=== PATIENT | female | born 2000 | race Caucasian/White ===

== ENCOUNTER → 2023-08-21 | Outpatient (CLI) | payer OTHER, SELFPAY ==
--- NOTE | 2023-08-21 12:38 | RAD_ITS ---
STUDY: X-RAY - LEFT WRIST REASON FOR EXAM: Female, 23 years old. Left wrist pain. TECHNIQUE: view(s) of the wrist were obtained. COMPARISON: None. FINDINGS: Normal visualized distal radius and ulna. Normal radiocarpal articulation. Normal distal radioulnar articulation. Normal carpal bones. Normal carpal articulations. Normal carpometacarpal articulation of the thumb. Normal second through fifth carpometacarpal articulations. Normal visualized metacarpal bones. The soft tissue structures are normal. RAD/Wrist min 3 Views IMPRESSION: Normal x-ray examination of the wrist. Electronically Signed: Thomas Pardo MD at 12:52 EST ,
--- OUTSIDE RECORDS SUMMARY | 2023-08-21 12:58 | XMS RPT_ITS | CCD ---
Author Name Unknown Address [address] [place] [address] Organization [facility] Care Team Providers Care Mortgage Loan Originator Name Role Phone Joseyogi Grey Burnett Primary Care Provider Keeley BECKWITH, Macarena Nichols Primary Care Provider Macarena Mina MD Primary Care Provider MACARENA MINA Primary Care Unavailab le CROUCH, MACARENA NICHOLS Attending Unavailab le CROUCH, MACARENA NICHOLS Attending Unavailab le CROUCH, MACARENA NICHOLS Primary Care Unavailab le CROUCH, MACARENA NICHOLS Attending Unavailab le CROUCH, MACARENA NICHOLS Primary Care Unavailab le CROUCH, MACARENA NICHOLS Primary Care Unavailab le CROUCH, MACARENA NICHOLS Admitting Unavailab le PROVIDER, UNKNOWN Referring Unavailable Israel Raymundo Attending Unavailable Israel Raymundo Primary Care Unavailable Israel Raymundo MD Primary Care Provider Israel Raymundo MD Unavailable [phone] Israel Raymundo MD Primary Care Provider Israel Raymundo MD Unavailable DR ISRAEL RAYMUNDO MD Primary Care Physician NILAY LEDESMA Attending Unavailable ISRAEL RAYMUNDO Referring Unavailable ISRAEL RAYMUNDO Primary Care Unavailable NILAY LEDESMA Attending Unavailable ISRAEL RAYMUNDO Primary Care Unavailable EVELIN CORBETT Attending Unavailable ISRAEL RAYMUNDO Primary Care Unavailable ISRAEL RAYMUNDO Attending Unavailable ISRAEL RAYMUNDO Primary Care Unavailable CHELLE, EVELIN Attending Unavailable ISRAEL RAYMUNDO Primary Care Unavailable ISRAEL RAYMUNDO Attending Unavailable ISRAEL RAYMUNDO Primary Care Unavailable EVELIN CORBETT Attending Unavailable ISRAEL RAYMUNDO Primary Care Unavailable EVELIN CORBETT Attending Unavailable ISRAEL RAYMUNDO Primary Care Unavailable ISRAEL RAYMUNDO Attending Unavailable ISRAEL RAYMUNDO Primary Care Unavailable ISRAEL RAYMUNDO Attending Unavailable ISRAEL RAYMUNDO Primary Care Unavailable ISRAEL RAYMUNDO Attending Unavailable ISRAEL RAYMUNDO Primary Care Unavailable NILAY LEDESMA Attending Unavailable ISRAEL RAYMUNDO Primary Care Unavailable NILAY LEDESMA Attending Unavailable ISRAEL RAYMUNDO Primary Care Unavailable Medications Current Medications Medication Drug Class(es) Dates Sig (Normalized) Sig (Original) amoxicillin 875 mg / clavulanate 125 mg oral tablet (1 source) Penicillin-class Antibacterial Start: 0 End: 0 take 1 tablet by mouth twice daily amoxicillin-clavulana te (AUGMENTIN) 875-125 MG per tablet Take 1 tablet by mouth 2 times daily for 7 days 14 tablet 0 10/16/2019 10/23/2019 Active 24 hr dexmethylphenidate hydrochloride 15 mg extended release oral capsule (20 sources) Central Nervous System Stimulant Start: 3 End: 3 take 1 capsule by mouth once daily dexmethylphenidate XR (Focalin XR) 15 MG 24 hr capsule Indications: Attention deficit hyperactivity disorder (ADHD), combined type Take 1 capsule (15 mg) by mouth daily. Do not crush, chew, or split. 30 capsule 0 08/12/2023 Active Completed/Discontinued Medications Medication Drug Class(es) Dates Sig (Normalized) Sig (Original) azithromycin 250 mg oral tablet (2 sources) Macrolide Antimicrobial Start: 10-20-2022 End: 10-27-2022 azithromycin (Zithromax Z-Torres) 250 MG tablet Take as directed 6 tablet 0 10/20/2022 10/27/2022 Discontinued (Med list cleanup) Problems Active Problems Problem Classification Problem Date Documented Date Episodic/Chronic Allergic reactions (9 sources) Atopic dermatitis; Translations: [Intrinsic (allergic) eczema] Onset: 04-01-2023 04-01-2023 Chronic Anxiety disorders (16 sources) Anxiety; Translations: [Anxiety disorder, unspecified] Onset: 09-19-2022 Chronic Attention-deficit conduct and disruptive behavior disorders (12 sources) Attention deficit hyperactivity disorder; Translations: [Attention-deficit hyperactivity disorder, unspecified type] Onset: 07-07-2019 07-07-2019 Chronic Attention-deficit, conduct, and disruptive behavior disorders (14 sources) Attention deficit hyperactivity disorder, combined type; Translations: [Attention-deficit hyperactivity disorder, combined type] Onset: 07-07-2019 Chronic Attention-deficit, conduct, and disruptive behavior disorders (2 sources) Attention-deficit hyperactivity disorder, combined type; Translations: [Attention-deficit hyperactivity disorder, combined type] Onset: 09-19-2022 Chronic Diabetes mellitus without complication (20 sources) Type 2 diabetes mellitus without complication; Translations: [Type 2 diabetes mellitus without complications] Onset: 07-07-2019 07-07-2019 Chronic Disorders usually diagnosed in infancy, childhood, or adolescence (16 sources) Autistic disorder; Translations: [Autistic disorder] Onset: 12-25-2021 Chronic Fever of unknown origin (1 source) Fever; Translations: [Fever, unspecified fever cause] Episodic Immunizations and screening for infectious disease (3 sources) Patient encounter status; Translations: [Encounter for laboratory testing for COVID-19 virus] Episodic Mood disorders (2 sources) Major depressive disorder, recurrent, moderate; Translations: [Major depressive disorder, recurrent, moderate (HCC)] Onset: 10-01-2022 Chronic Other connective tissue disease (2 sources) Pain in right foot; Translations: [Pain in right foot] Onset: 06-04-2022 Episodic Other endocrine disorders (14 sources) Polycystic ovary syndrome; Translations: [Polycystic ovarian syndrome] Onset: 12-25-2021 Chronic Other endocrine disorders (2 sources) Polycystic ovarian syndrome; Translations: [Polycystic ovarian syndrome] Onset: 09-19-2022 Chronic Other lower respiratory disease (1 source) Cough; Translations: [Cough] Episodic Other nutritional; endocrine; and metabolic disorders (13 sources) Obesity; Translations: [Other obesity due to excess calories] Onset: 12-25-2021 Chronic Other nutritional; endocrine; and metabolic disorders (1 source) Severe obesity; Translations: [Morbid (severe) obesity due to excess calories] 04-01-2023 Chronic Other nutritional; endocrine; and metabolic disorders (2 sources) Morbid (severe) obesity due to excess calories; Translations: [Morbid (severe) obesity due to excess calories (HCC)] Onset: 09-19-2022 Chronic Other nutritional; endocrine; and metabolic disorders (2 sources) Body mass index (BMI) 39.0-39.9, adult; Translations: [Body mass index (BMI) 39.0-39.9, adult] Onset: 09-19-2022 Chronic Other upper respiratory infections (12 sources) Sinusitis; Translations: [Chronic sinusitis, unspecified] Onset: 09-19-2022 Resolved: 01-08-2023 09-19-2022 Chronic Sprains and strains (1 source) Sprain of ankle; Translations: [Sprain of unspecified ligament of unspecified ankle, initial encounter] Onset: 04-20-2023 Episodic Past or Other Problems Problem Classification Problem Date Documented Da te Episodic/Chronic Mood disorders (7 sources) Mood disorders Onset: 03-12-2023 03-12-2023 Open wounds of extremities (7 sources) Laceration of left great toe; Translations: [Laceration without foreign body of left great toe without damage to nail, initial encounter] Onset: 03-13-2023 03-13-2023 Episodic Other aftercare (7 sources) H/O: high risk medication; Translations: [Other terminal operator (current) drug therapy] Onset: 01-08-2023 01-08-2023 Episodic Other aftercare (2 sources) Other shelter (current) drug therapy; Translations: [Other terminal operator (current) drug therapy] Onset: 01-08-2023 Episodic Other circulatory disease (11 sources) Elevated blood-pressure reading without diagnosis of hypertension; Translations: [Elevated blood-pressure reading, without diagnosis of hypertension] Onset: 10-27-2022 10-27-2022 Episodic Other circulatory disease (2 sources) Elevated blood-pressure reading, without diagnosis of hypertension; Translations: [Elevated blood-pressure reading, without diagnosis of hypertension] Onset: 10-27-2022 Episodic Other ear and sense organ disorders (7 sources) Acute otitis externa of left ear; Translations: [Unspecified acute noninfective otitis externa, left ear] Onset: 01-02-2023 Resolved: 01-08-2023 01-08-2023 Episodic Other ear and sense organ disorders (2 sources) Other infective otitis externa, left ear; Translations: [Other infective otitis externa, left ear] Onset: 01-02-2023 Episodic Other screening for suspected conditions (not mental disorders or infectious disease) (2 sources) Encounter for screening for lipoid disorders; Translations: [Encounter for screening for lipoid disorders] Onset: 01-08-2023 Episodic Other upper respiratory infections (17 sources) Acute pharyngitis; Translations: [Acute sinusitis] Onset: 09-19-2022 Resolved: 01-08-2023 Episodic Results Test Name Value Interpretation Reference Range Facil ity Vital Signs Date Time Vital Sign Value Performing Clinician Facility 06-30-2023 08:05-0500 Body height 172.7 cm Evelin Bridenthal TABLEAU DEVELOPER - [employer] SENIOR [employer]OCIATE Work Phone: [facility] 06-30-2023 08:05-0500 Body mass index (BMI) [Ratio] 39.56 kg/m2 Evelin Bridenthal TABLEAU DEVELOPER - TAX SENIOR ASSOCIATE Work Phone: [facility] 06-30-2023 08:05-0500 Body temperature 98.49 [degF] Evelin Bridenthal TABLEAU DEVELOPER - TAX SENIOR ASSOCIATE Work Phone: [facility] 06-30-2023 08:05-0500 Body weight 118.03 kg Evelin Bridenthal TABLEAU DEVELOPER - TAX SENIOR ASSOCIATE Work Phone: [facility] 06-30-2023 08:05-0500 Diastolic blood pressure 80 mm[Hg] Evelin Bridenthal TABLEAU DEVELOPER - TAX SENIOR ASSOCIATE Work Phone: [facility] 06-30-2023 08:05-0500 Heart rate 82 /min Evelin Bridenthal TABLEAU DEVELOPER - TAX SENIOR ASSOCIATE Work Phone: [facility] 06-30-2023 08:05-0500 Respiratory rate 18 /min Evelin Bridenthal TABLEAU DEVELOPER - TAX SENIOR ASSOCIATE Work Phone: [facility] 06-30-2023 08:05-0500 Systolic blood pressure 128 mm[Hg] Evelin Bridenthal TABLEAU DEVELOPER - TAX SENIOR ASSOCIATE Work Phone: [facility] 04-20-2023 12:37-0400 Body temperature 98.6 [degF] ZEINA ROSADO MD [facility] 04-20-2023 12:37-0400 Diastolic Blood Pressure Non-Invasive 97 1 ZEINA ROSADO MD [facility] 04-20-2023 12:37-0400 Heart rate 75 /min ZEINA ROSADO MD [facility] 04-20-2023 12:37-0400 Respiratory rate 20 /min ZEINA ROSADO MD [facility] 04-20-2023 12:37-0400 Systolic Blood Pressure Non-Invasive 142 1 ZEINA ROSADO MD [facility] 04-01-2023 07:37-0400 Diastolic blood pressure 92 mm[Hg] Israel Raymundo MD Work Phone: [facility] 04-01-2023 07:37-0400 Heart rate 82 /min Israel Raymundo MD Work Phone: [facility] 04-01-2023 07:37-0400 SaO2% (BldA) [Mass fraction] 98 % Israel Raymundo MD Work Phone: [facility] 04-01-2023 07:37-0400 Systolic blood pressure 130 mm[Hg] Israel Raymundo MD Work Phone: [facility] 04-01-2023 07:10-0400 Body height 172.7 cm Israel Raymundo MD Work Phone: [facility] 04-01-2023 07:10-0400 Body mass index (BMI) [Ratio] 39.44 kg/m2 Israel Raymundo MD Work Phone: [facility] 04-01-2023 07:10-0400 Body weight 117.66 kg Israel Raymundo MD Work Phone: [facility] 10-27-2022 09:37-0400 Diastolic blood pressure 102 mm[Hg] Israel Raymundo MD Work Phone: [facility] 10-27-2022 09:37-0400 Heart rate 130 /min Israel Raymundo MD Work Phone: [facility] 10-27-2022 09:37-0400 SaO2% (BldA) [Mass fraction] 97 % Israel Raymundo MD Work Phone: [facility] 10-27-2022 09:37-0400 Systolic blood pressure 130 mm[Hg] Israel Raymundo MD Work Phone: [facility] 10-27-2022 09:15-0400 Body height 172.7 cm Israel Raymundo MD Work Phone: [facility] 10-27-2022 09:15-0400 Body mass index (BMI) [Ratio] 38.23 kg/m2 Israel Raymundo MD Work Phone: [facility] 10-27-2022 09:15-0400 Body weight 114.03 kg Israel Raymundo MD Work Phone: [facility] 03-31-2022 09:41-0400 Body height 172.7 cm Macarena Mina MD Work Phone: [facility] 03-31-2022 09:41-0400 Body mass index (BMI) [Ratio] 36.25 kg/m2 Macarena Mina MD Work Phone: [facility] 03-31-2022 09:41-0400 Body temperature 97.9 [degF] Macarena Mina MD Work Phone: [facility] 03-31-2022 09:41-0400 Body weight 108.14 kg Macarena Mina MD Work Phone: [facility] 03-31-2022 09:41-0400 Diastolic blood pressure 70 mm[Hg] Macarena Mina MD Work Phone: [facility] 03-31-2022 09:41-0400 Heart rate 101 /min Macarena Mina MD Work Phone: [facility] 03-31-2022 09:41-0400 SaO2% (BldA) [Mass fraction] 97 % Macarena Mina MD Work Phone: [facility] 03-31-2022 09:41-0400 Systolic blood pressure 130 mm[Hg] Macarena Mina MD Work Phone: [facility] 12-25-2021 09:05-0400 Diastolic blood pressure 82 mm[Hg] Macarena Mina MD Work Phone: [facility] 12-25-2021 09:05-0400 Systolic blood pressure 140 mm[Hg] Macarena Mina MD Work Phone: [facility] 12-25-2021 09:03-0400 Body height 172.7 cm Macarena Mina MD Work Phone: [facility] 12-25-2021 09:03-0400 Body mass index (BMI) [Ratio] 32.81 kg/m2 Macarena Mina MD Work Phone: [facility] 12-25-2021 09:03-0400 Body temperature 97.9 [degF] Macarena Mina MD Work Phone: [facility] 12-25-2021 09:03-0400 Body weight 97.89 kg Macarena Mina MD Work Phone: [facility] 12-25-2021 09:03-0400 Heart rate 120 /min Macarena Mina MD Work Phone: [facility] 12-25-2021 09:03-0400 SaO2% (BldA) [Mass fraction] 99 % Macarena Mina MD Work Phone: [facility] 06-25-2021 12:24-0500 Body height 172.7 cm Grey Bramlee DO Work Phone: [facility] 06-25-2021 12:24-0500 Body mass index (BMI) [Ratio] 30.87 kg/m2 Grey Bramlee DO Work Phone: [facility] 06-25-2021 12:24-0500 Body temperature 98.49 [degF] Grey Bramlee DO Work Phone: [facility] 06-25-2021 12:24-0500 Body weight 92.08 kg [employer] Work Phone: [facility] 06-25-2021 12:24-0500 Heart rate 84 /min [employer] Work Phone: [facility] 06-25-2021 12:24-0500 Respiratory rate 18 /min [employer] Work Phone: [facility] 06-25-2021 09:49-0500 SaO2% (BldA) [Mass fraction] 100 % [employer] Work Phone: [facility] 10-16-2019 13:17-0500 Body Temperature 99.3 [degF] [place] 10-16-[place] 13:17-0500 BP Diastolic 97 mm[Hg] [facility] [employer] [place] 10-16-2019 13:17-0500 BP Systolic 179 mm[Hg] [facility] [employer] [place] 10-16-2019 13:17-0500 Pulse (Heart Rate) 134 /min [place] 10-16-2019 13:17-0500 Pulse Oximetry 96 % [facility] [employer] [place] 10-16-2019 13:17-0500 Respiratory Rate 17 /min Grey [employer] [place] Encounters Encounter Date Encounter Type Care Provider Facility Start: 08-12-2023 Refill Israel Raymundo MD Work Phone: [facility] Procedures Date Procedure Procedure Detail Performing Clinician Start: 06-30-2023 Follow-up visit Follow-up EVELIN CORBETT Start: 03-12-2023 Adult depression scr eening assessment Israel Raymundo MD Work Phone: Start: 01-08-2023 Lipid 1996 panel - S angelika or Plasma Israel Raymundo MD Work Phone: Start: 10-01-2022 Adult depression scr eening assessment Corry Ortiz TABLEAU DEVELOPER - TAX SENIOR ASSOCIATE Work Phone: Start: 06-11-2022 Microscopic observat ion [Identifier] in Cervix by Cyto stain Israel Raymundo MD Work Phone: Start: 02-10-2022 Ophthalmic examinati on and evaluation Macarena Mina MD Work Phone: Start: 12-25-2021 Adult depression scr eening assessment Macarena Mina MD Work Phone: Start: 06-25-2021 COVID-19, RAPID Daquan celestine ZieglerStokes TABLEAU DEVELOPER - TAX SENIOR ASSOCIATE Work Phone: Start: 06-25-2021 Iaadiadoo influenza Mark jeimy Burnett Stokes TABLEAU DEVELOPER - TAX SENIOR ASSOCIATE Work Phone: Plan of Treatment Date Care Activity Detail Author Start: 2058 RSV Immunization age d 60 or older (1 - 1-dose 60+ series) RSV Immunization aged 60 or older (1 - 1-dose 60+ series) [facility] Start: 2048 Zoster Vaccines (1 of 2) Zoster Vacc melissa (1 of 2) [facility] Start: 2048 Shingles Vaccine (1 of 2) Shingles V accine (1 of 2) [place] Start: 06-11-2025 Glaucoma screening Diabetes: R etinopathy Screening [facility] Start: 06-11-2025 Screening for malign ant neoplasm of cervix Pap Smear [facility] Start: 04-01-2024 Hemoglobin A1c measurement Diabetes: Hemoglobin A1C [facility] Start: 03-12-2024 COVID-19 Vaccine (#1) COVID-19 Vacci ne (#1) [facility] Immunizations Immunization Date Immunization Notes Care Provider Fa cility 10-09-2021 tuberculin skin test ; purified protein derivative solution, intradermal Macarena Mina MD Work Phone: [facility] 1999 measles, mumps and r ubella virus vaccine Israel Raymundo MD Work Phone: [facility] Payers Date Payer Category Payer Unknown 2022 Unknown [id number] 2019 Medicare UHC MEDICARE [employer] DUAL COMPLETE xxxxxxxxx 2019-Present xxxxxxxxx [id number] 2019 Medicare [id number] 2019 Medicare [facility] CARE [facility] DUAL COMPLETE (O SNP) [id number] 2019-Present [phone] [address] [address] [place] [address] [id number] 2014 [employer] [place] [employer] ( and others) [facility] xxxxxxxxxxx 2014-Present [id number] 2014 Medicaid [facility] MEDICAID [facility] xxxxxxxxxxxx 2014-Present [phone] [address] [address] [place] [address] xxxxxxxxxxxx [id number] 2014 Medicaid [id number] 1998 Unknown [id number] 2. 1998 Unknown [id number] 2. 1998 Unknown [id number] 2. 1998 Unknown [id number] 1998 Unknown [id number] Social History Date Type Detail Facility Start: 10-16-2019 End: 10-01-2022 Tobacco smoking status NHIS Never smoker [facility] Start: 10-16-2019 End: 03-31-2022 [facility] Start: 2000 [facility] Start: 12-24-2020 End: 10-01-2022 Tobacco use and exposure Never used [facility] Start: 04-04-2021 History SDOH Financial 5 [facility] Work Phone: Start: 04-04-2021 History SDOH Food Worry 1 [facility] Work Phone: Start: 12-15-2021 End: 04-01-2023 Exposure to SARS-CoV-2 (event) Not sure [facility] Start: 03-31-2022 History SDOH Physica l Activity DPW 98 [facility] Start: 03-31-2022 History SDOH Physica l Activity MPS 0 [facility] Start: 03-31-2022 History SDOH Housing Unable to Pay 3 [facility] Start: 10-27-2022 End: 06-30-2023 Alcohol intake Current drinker of alcohol (finding) [facility] Start: 10-01-2022 Alcohol [facility] Start: 01-08-2023 End: 03-12-2023 History of Social function [facility] Start: 01-08-2023 End: 03-12-2023 Tobacco use panel [facility] How hard is it for y ou to pay for the very basics like food, housing, medical care, and heating Not hard at all [facility] (I/We) worried wheth er (my/our) food would run out before (I/we) got money to buy more. Never true [facility] Medical Equipment Procedure Code Equipment Code Equipment Origin al Text Equipment Identifier Dates 1 each by In Vit ro route 2 times daily As needed. [id number] Start: 03-17-2019 USE TWICE DAILY NEEDED [id number] Start: 01-09-2021 USE TWICE DAILY NEEDED [id number] Start: 07-25-2021 Functional Status Date Assessment Result Facility 04-20-2023 Functional Status Independent Alvin Marquis doan [facility] 04-20-2023 Functional Status Standard Safet y ID band on, Call device within reach, Bed in low position, Wheels locked, Bedside Cart Locked, Visitor at bedside, Safety level maintained [facility] Mental Status Date Assessment Result Facility 04-20-2023 Mental Status Orientation Oriented x 4 [facility] 04-20-2023 Mental Status [facility] Clinical Notes 03-14-2021 to 08-12-2023 Telephone Encounter - JOSE Warren CNP - 08/12/2023 4:45 PM ESTTelephone Encounter - JOSE Warren CNP - 08/12/2023 4:45 PM ESTPatient InstructionsPatient Instructions Note Date & Type Note Facility 08-12-2023 Telephone encounter Note Reviewed chart. Refill appropriate. RX sent. [facility] 08-12-2023 Miscellaneous Notes Reviewed chart. Refill appropriate. RX sent. 10/02/22 [facility] UDS 01/08/23 Medication name: dexmethylphenidate XR (Focalin XR) 15 MG 24 hr capsule Medication dosage: 15 mg (Miligrams Monthly quantity needed: 30 How many day supply requestin days Medication route: oral (PO) Medication administration time(s): Take 1 capsule (15 mg) by mouth daily. Do nut crush, chew, or split If taking medication PRN, reason for taking medication: N/A If this is a controlled substance do you receive this or any other controlled medication from any other doctor or facility: No Ordering provider: Dr Israel Raymundo Date of last office visit: 06-30-2023 Date of next office visit: 08-31-2023 Date of last refill: (see medication tab): 07-08-2023 Updated/Validated preferred pharmacy: Yes Patient instructed to contact the pharmacy prior to picking up the medication: Yes documented in this encounter [facility] 08-12-2023 Telephone encounter Note 10/02/22 [facility] UDS 01/08/23 [facility] 08-12-2023 Telephone encounter Note Medication name: dexmethylphenidate XR (Focalin XR) 15 MG 24 hr capsule Medication dosage: 15 mg (Miligrams Monthly quantity needed: 30 How many day supply requestin days Medication route: oral (PO) Medication administration time(s): Take 1 capsule (15 mg) by mouth daily. Do nut crush, chew, or split If taking medication PRN, reason for taking medication: N/A If this is a controlled substance do you receive this or any other controlled medication from any other doctor or facility: No Ordering provider: Dr Israel Raymundo Date of last office visit: 06-30-2023 Date of next office visit: 08-31-2023 Date of last refill: (see medication tab): 07-08-2023 Updated/Validated preferred pharmacy: Yes Patient instructed to contact the pharmacy prior to picking up the medication: Yes [facility] 08-03-2023 Telephone encounter Note Prescription Request: Last medication check: 06/30/23 Last physical exam: 03/13/23 Next scheduled appointment: 08/31/23 Last date of refill on this medication 01/23/23 90 day 1 refill [facility] 08-03-2023 Miscellaneous Notes Prescription Request: Last medication check: 06/30/23 Last physical exam: 03/13/23 Next scheduled appointment: 08/31/23 Last date of refill on this medication 01/23/23 90 day 1 refill documented in this encounter [facility] 06-30-2023 Evaluation + Plan note Associated Problem(s): Attention deficit hyperactivity disorder (ADHD), combined type Controlled. Continue dexmethylphenidate extended release 15 mg daily and guanfacine 4 mg daily [facility] 06-30-2023 Miscellaneous Notes Associated Problem(s): Attention deficit hyperactivity disorder (ADHD), combined type Controlled. Continue dexmethylphenidate extended release 15 mg daily and guanfacine 4 mg daily Associated Problem(s): Type 2 diabetes mellitus without complication (CMS/HCC) (HCC) Uncontrolled. Has not been checking blood glucose. Recommend checking fasting and 2 hours after meal daily and bring those readings to the office in 2 weeks. Patient also advised to try taking the 6 mg of glimepiride in the morning again and see how it goes. Check glucose if signs of hypoglycemia occur, if <70- take 15 g of carbohydrate (crackers/pb). documented in this encounter [facility] 06-30-2023 Evaluation + Plan note Associated Problem(s): Type 2 diabetes mellitus without complication (CMS/HCC) (HCC) Uncontrolled. Has not been checking blood glucose. Recommend checking fasting and 2 hours after meal daily and bring those readings to the office in 2 weeks. Patient also advised to try taking the 6 mg of glimepiride in the morning again and see how it goes. Check glucose if signs of hypoglycemia occur, if <70- take 15 g of carbohydrate (crackers/pb). [facility] 06-30-2023 History of Present illness Narrative Images from the original note were not included. 06/30/2023 Dara Garcia (: 2000) is a 23 y.o. female , Established patient, here for evaluation of the following chief complaint(s): Follow-up (Diabetic med check) ASSESSMENT/PLAN: 1. Type 2 diabetes mellitus without complication, without long-term current use of insulin ([facility]/HCC) ([facility]) Assessment & Plan: Uncontrolled. Has not been checking blood glucose. Recommend checking fasting and 2 hours after meal daily and bring those readings to the office in 2 weeks. Patient also advised to try taking the 6 mg of glimepiride in the morning again and see how it goes. Check glucose if signs of hypoglycemia occur, if <70- take 15 g of carbohydrate (crackers/pb). 2. Attention deficit hyperactivity disorder (ADHD), combined type Assessment & Plan: Controlled. Continue dexmethylphenidate extended release 15 mg daily and guanfacine 4 mg daily Follow up for 3 month medcheck. SUBJECTIVE/OBJECTIVE: HPI - Dara Garcia (: 2000) is a 23 y.o. female , Established patient, here for the evaluation of the following chief complaint(s): Follow-up (Diabetic med check) Presents today for follow-up ADHD medications and diabetes ADHD- currently taking focalin xr and guanfacine 4 mg daily.- doing ok on the dosing. Has been on medications for several years with good control of symptoms. Mood is doing good. Has been seeing psychiatry for anxiety and depression, still needs to schedule the ADHD adult eval to be completed Diabetes. - is eating less carbs and more protein. Is taking metformin 1000 mg twice daily. And was to increase the glimepiride to 6 mg, so we will months ago, however states that she was not feeling well when taking the 6 mg so she only took it for a few days and went back down to 4 mg, is currently not checking her blood sugars, needs batteries for her meter. Last hemoglobin A1c was 8.3 3 months ago Prior to Admission medications Medication Sig Start Date End Date Taking? Authorizing Provider dexmethylphenidate XR (Focalin XR) 15 MG 24 hr capsule Take 1 capsule (15 mg) by mouth daily. Do not crush, chew, or split. 06/09/23 Yes Israel Raymundo MD glimepiride (Amaryl) 4 MG tablet Take 1.5 tablets (6 mg) by mouth every morning (before breakfast). 06/09/23 Yes Israel Raymundo MD guanFACINE (Intuniv) 4 mg 24 hr tablet TAKE 1 TABLET BY MOUTH EVERY DAY 06/24/23 Yes Israel Raymundo MD hydrOXYzine HCl (Atarax) 25 MG tablet Take 1 tablet (25 mg) by mouth Nightly. 05/18/23 Yes JOSE Gan CNP metFORMIN (Glucophage) 1000 MG tablet TAKE 1 TABLET (1,000 MG) BY MOUTH IN THE MORNING AND IN THE EVENING WITH MEALS 01/23/23 Yes Israel Raymundo MD Marissa 0.25-35 MG-MCG tablet TAKE 1 TABLET BY MOUTH EVERY DAY IN THE MORNING 06/17/23 Yes Israel Raymundo MD risperiDONE (RisperDAL) 1 MG tablet Take 1 tablet (1 mg) by mouth daily. 05/18/23 Yes JOSE Gan CNP sertraline (Zoloft) 50 MG tablet Take 1.5 tablets (75 mg) by mouth daily. 05/18/23 05/17/24 Yes JOSE Gan CNP triamcinolone (Kenalog) 0.5 % cream Apply topically 3 times daily. 04/01/23 Yes Israel Raymundo MD guanFACINE (Intuniv) 4 mg 24 hr tablet Take 1 tablet (4 mg) by mouth daily. 04/02/23 06/24/23 Israel Raymundo MD Review of Systems Constitutional: Negative for activity change, appetite change, fatigue and fever. HENT: Negative for congestion, ear discharge, ear pain, postnasal drip, rhinorrhea, sinus pressure and sinus pain. Bilateral ears itching a little bit Respiratory: Negative. Cardiovascular: Negative. Gastrointestinal: Negative. Genitourinary: Negative. Musculoskeletal: Negative. Neurological: Negative. Psychiatric/Behavioral: Negative. Vitals: 06/30/23 0805 BP: 128/80 Pulse: 82 Resp: 18 Temp: 36.9 C (98.5 F) Weight: 260 lb 3.2 oz (118 kg) Height: 5' 8 (1.727 m) Physical Exam Constitutional: General: She is not in acute distress. Appearance: Normal appearance. She is obese. She is not ill-appearing. HENT: Head: Normocephalic and atraumatic. Right Ear: Tympanic membrane normal. Left Ear: Tympanic membrane normal. Nose: No congestion or rhinorrhea. Mouth/Throat: Mouth: Mucous membranes are moist. Pharynx: Oropharynx is clear. No posterior oropharyngeal erythema. Cardiovascular: Rate and Rhythm: Normal rate and regular rhythm. Pulmonary: Effort: Pulmonary effort is normal. Breath sounds: Normal breath sounds. Musculoskeletal: Right lower leg: No edema. Left lower leg: No edema. Neurological: Mental Status: She is alert and oriented to person, place, and time. An electronic signature was used to authenticate this note. JOSE Warren CNP 06/30/2023 10:37 AM documented in this encounter [facility] 06-30-2023 Instructions JOSE Warren CNP - 06/30/2023 8:00 AM EST Check glucose fasting and 2 hours after a meal daily - call or drop off readings in 2 weeks. Try doing the 6 mg in am of the glimepiride. -- Antihistamine over the counter for itchy ears- there is no infection. documented in this encounter [facility] 06-24-2023 Telephone encounter Note Prescription Request: Last medication check: 04/01/23 Last physical exam: 03/13/23 Next scheduled appointment: none Last date of refill on this medication 04/02/23 90 day no refill [facility] 06-24-2023 Miscellaneous Notes Prescription Request: Last medication check: 04/01/23 Last physical exam: 03/13/23 Next scheduled appointment: none Last date of refill on this medication 04/02/23 90 day no refill documented in this encounter [facility] 04-20-2023 Hospital Discharge instructions Patient Education 04/20/2023 14:42:37 Ankle Sprain (Adult) Ankle Sprain (Adult) An ankle sprain is a stretching or tearing of the ligaments that hold the ankle joint together. There are no broken bones. An ankle sprain is a common injury for both children and adults. It happens when the ankle turns, twists, or rolls in an awkward way. This can be caused by a sports injury. Or it can happen from doing something as simple as stepping on an uneven surface. Ligaments are made of tough connective tissue. Normally, ligaments stretch a certain amount and then go back to their normal place. A sprain happens when a ligament is forced to stretch more than the normal amount. A severe sprain can actually tear the ligaments. If you have a severe sprain, you may have felt or heard something like a pop when you were injured. Ankle sprains are given a grade depending on whether they are mild, moderate, or severe: Grade 1 sprain. A mild sprain with minor stretching and damage to the ligament. Grade 2 sprain. A moderate sprain where the ligament is partly torn. Grade 3 sprain. The most severe kind of sprain. The ligament is completely torn. Most sprains take about 4 to 6 weeks to heal. A severe sprain can take several months to recover. Your healthcare provider may order X-rays to be sure you don t have a fracture, or broken bone. The injured area will feel sore. Swelling and pain may make it hard to walk. You may need crutches if walking is painful. Or your provider may have you use a cast boot or air splint. This will depend on the grade of ankle sprain that you have. Home care For a Grade 1 sprain, use RICE (rest, ice, compression, and elevation): Rest your ankle. Don t walk on it. Ice should be used right away to help control swelling. Place an ice pack over the injured area for 20 minutes. Do this every 3 to 6 hours for the first 24 to 48 hours. Keep using ice packs to ease pain and swelling as needed. To make an ice pack, put ice cubes in a plastic bag that seals at the top. Wrap the bag in a clean, thin towel or cloth. Never put ice or an ice pack directly on the skin. The ice pack can be put right on the cast, bandage, or splint. As the ice melts, be careful that the cast, bandage, or splint doesn t get wet. If you have a boot, open it to apply an ice pack, unless told otherwise by your provider. Compression devices help to control swelling. They also keep the ankle from moving and support your injured ankle. These devices include dressings, bandages, and wraps. Elevate or raise your ankle above the level of your heart when sitting or lying down. This is very important for the first 48 hours. Follow the RICE guidelines for a Grade 2 sprain. This type of sprain will take longer to heal. Your provider may have you wear a splint, cast, or brace to keep your ankle from moving. If you have a Grade 3 sprain, you are at risk for long-term ankle instability. In rare cases, surgery may be needed. Your provider may have you wear a short leg cast or a walking boot for 2 to 3 weeks. After 48 hours, it may be helpful to apply heat for 20 minutes several times a day. You can do this with a heating pad or warm compress. Or you may want to go back and forth between using ice and heat. Never apply heat directly to the skin. Always wrap the heating pad or warm compress in a clean, thin towel or cloth. You may use eizr-cnh-sgoywhl pain medicine (NSAIDS or nonsteroidal anti-inflammatory drugs) to control pain, unless another pain medicine was prescribed. Talk with your provider before using these medicines if you have chronic liver or kidney disease, or have ever had a stomach ulcer or gastrointestinal bleeding. Follow any rehabilitation exercises your provider gives you. These can help you be more flexible and improve your balance and coordination. This is helpful in preventing long-term ankle problems. Prevention To help prevent ankle sprains, it s important to have good strength, balance, and flexibility. Be sure to: Always warm up before you exercise or do something very active Be careful when walking or running on uneven or cracked surfaces Wear shoes that are in good condition and fit well Listen to your body s signals to slow down when you are in pain or tired Follow-up care Any X-rays you had today don t show any broken bones, breaks, or fractures. Sometimes fractures don t show up on the first X-ray. Bruises and sprains can sometimes hurt as much as a fracture. These injuries can take time to heal completely. If your symptoms don t get better or they get worse, talk with your healthcare provider. You may need a repeat X-ray. Follow up with your healthcare provider, or as advised. Check for any warning signs listed below. When to seek medical advice Call your healthcare provider right away if any of these occur: Fever of 100.4 F (38 C) or higher, or as directed by your healthcare provider Chills The injury doesn t seem to be healing The swelling comes back The cast or splint has a bad smell The plaster cast or splint gets wet or soft The fiberglass cast or splint gets wet and does not dry for 24 hours The pain or swelling increases, or redness appears Your toes become cold, blue, numb, or tingly The skin is discolored (looks blue, purple, or dorantes), has blisters, or is irritated You re-injure your ankle [id number] [employer] [address] [place] [address]. All rights reserved. This information is not intended as a substitute for professional medical care. Always follow your healthcare professional's instructions. Follow Up Care 04/20/2023 12:31:07 With:ISRAEL RAYMUNDO MD Address: [address] [place] [phone]- When:3-5 days [facility] 04-20-2023 Note Discharge Instructions Thank you for allowing [facility] to assist you with your healthcare needs. The following is important discharge information regarding your hospital visit. Diagnosis from Today's Visit Ankle injury - Minor Ankle sprain What to Do Next Instructions from Your Care Team Discharge Home Equipment - Ordered -- Splint, Ankle Stirrup Right, 99 month(s), 04/20/23 14:43:00 EDT Discharge Home Equipment - Ordered -- Crutches, 99 month(s), 04/20/23 14:43:00 EDT Discharge Return to Work, School, or Sports (Return to Work, School, or Sports) - Ordered -- 04/20/23, 04/27/23, May return to: work, 04/20/23 14:41:00 EDT Post Acute Orders No qualifying data available. You Need to Schedule the Following Appointments Follow Up with ISRAEL RAYMUNDO MD When Within 3-5 days Where: [address] [place] [address]- Allergies NKA Medications Please ask your primary doctor or pharmacist before taking any other medication not listed, including over the counter drugs, herbal medications, vitamins and or supplements as they may interact with your home medications. Please take this list to your next doctor s visit. Bring all medications you take, including over the counter medications, herbals and other supplements with you to your doctor s visit. Patients and families are reminded to discard old lists and to update any records with all medication providers or retail pharmacies. Education Materials Ankle Sprain (Adult) An ankle sprain is a stretching or tearing of the ligaments that hold the ankle joint together. There are no broken bones. An ankle sprain is a common injury for both children and adults. It happens when the ankle turns, twists, or rolls in an awkward way. This can be caused by a sports injury. Or it can happen from doing something as simple as stepping on an uneven surface. Ligaments are made of tough connective tissue. Normally, ligaments stretch a certain amount and then go back to their normal place. A sprain happens when a ligament is forced to stretch more than the normal amount. A severe sprain can actually tear the ligaments. If you have a severe sprain, you may have felt or heard something like a pop when you were injured. Ankle sprains are given a grade depending on whether they are mild, moderate, or severe: Grade 1 sprain. A mild sprain with minor stretching and damage to the ligament. Grade 2 sprain. A moderate sprain where the ligament is partly torn. Grade 3 sprain. The most severe kind of sprain. The ligament is completely torn. Most sprains take about 4 to 6 weeks to heal. A severe sprain can take several months to recover. Your healthcare provider may order X-rays to be sure you don t have a fracture, or broken bone. The injured area will feel sore. Swelling and pain may make it hard to walk. You may need crutches if walking is painful. Or your provider may have you use a cast boot or air splint. This will depend on the grade of ankle sprain that you have. Home care For a Grade 1 sprain, use RICE (rest, ice, compression, and elevation): Rest your ankle. Don t walk on it. Ice should be used right away to help control swelling. Place an ice pack over the injured area for 20 minutes. Do this every 3 to 6 hours for the first 24 to 48 hours. Keep using ice packs to ease pain and swelling as needed. To make an ice pack, put ice cubes in a plastic bag that seals at the top. Wrap the bag in a clean, thin towel or cloth. Never put ice or an ice pack directly on the skin. The ice pack can be put right on the cast, bandage, or splint. As the ice melts, be careful that the cast, bandage, or splint doesn t get wet. If you have a boot, open it to apply an ice pack, unless told otherwise by your provider. Compression devices help to control swelling. They also keep the ankle from moving and support your injured ankle. These devices include dressings, bandages, and wraps. Elevate or raise your ankle above the level of your heart when sitting or lying down. This is very important for the first 48 hours. Follow the RICE guidelines for a Grade 2 sprain. This type of sprain will take longer to heal. Your provider may have you wear a splint, cast, or brace to keep your ankle from moving. If you have a Grade 3 sprain, you are at risk for long-term ankle instability. In rare cases, surgery may be needed. Your provider may have you wear a short leg cast or a walking boot for 2 to 3 weeks. After 48 hours, it may be helpful to apply heat for 20 minutes several times a day. You can do this with a heating pad or warm compress. Or you may want to go back and forth between using ice and heat. Never apply heat directly to the skin. Always wrap the heating pad or warm compress in a clean, thin towel or cloth. You may use oqhy-pqu-xecryxx pain medicine (NSAIDS or nonsteroidal anti-inflammatory drugs) to control pain, unless another pain medicine was prescribed. Talk with your provider before using these medicines if you have chronic liver or kidney disease, or have ever had a stomach ulcer or gastrointestinal bleeding. Follow any rehabilitation exercises your provider gives you. These can help you be more flexible and improve your balance and coordination. This is helpful in preventing long-term ankle problems. Prevention To help prevent ankle sprains, it s important to have good strength, balance, and flexibility. Be sure to: Always warm up before you exercise or do something very active Be careful when walking or running on uneven or cracked surfaces Wear shoes that are in good condition and fit well Listen to your body s signals to slow down when you are in pain or tired Follow-up care Any X-rays you had today don t show any broken bones, breaks, or fractures. Sometimes fractures don t show up on the first X-ray. Bruises and sprains can sometimes hurt as much as a fracture. These injuries can take time to heal completely. If your symptoms don t get better or they get worse, talk with your healthcare provider. You may need a repeat X-ray. Follow up with your healthcare provider, or as advised. Check for any warning signs listed below. When to seek medical advice Call your healthcare provider right away if any of these occur: Fever of 100.4 F (38 C) or higher, or as directed by your healthcare provider Chills The injury doesn t seem to be healing The swelling comes back The cast or splint has a bad smell The plaster cast or splint gets wet or soft The fiberglass cast or splint gets wet and does not dry for 24 hours The pain or swelling increases, or redness appears Your toes become cold, blue, numb, or tingly The skin is discolored (looks blue, purple, or dorantes), has blisters, or is irritated You re-injure your ankle [id number] [employer]. [address] [place] [address], [place] [address]. All rights reserved. This information is not intended as a substitute for professional medical care. Always follow your healthcare professional's instructions. Additional Information VACCINATE! IT SAVES LIVES! Members of the community who have not yet received the COVID-19 vaccine and would like to receive it can visit one of [facility] vaccine clinics. There are many vaccine clinic locations within the [facility]. For locations and available times, please visit [email or web address] It is important to note that some COVID mobile vaccine clinics are held outdoors and may be canceled in rainy or stormy conditions. To learn more about pediatric vaccinations (ages 5-11), we invite you to visit the [employer] webpage. [email or web address] [email or web address] To learn more about the COVID-19 vaccine, we invite you to visit the CDC website for a list of frequently asked questions. https://www.cdc.gov/coronavirus/2 019-ncov/vaccines/faq.html [facility] Patient Portal Access Instructions: Stay connected with your healthcare team and access your personal medical information anytime with the [facility] Patient Portal. If you would like a full copy of your medical records please contact the [facility] Medical Records Department Thursday through Thursday between 8a.m. and 4:30p.m. Please follow the directions below to access the portal: 1.Access the email account you provided upon registration to the hospital.2.Look for an invitation email from [facility].3.Open the email and access the invitation link: Accept Invitation to [facility].Fill in the required garcia to create your account. Sign into [email or web address] with your username and password that you created in the above steps to stay up to date. You can then view a summary of results, a summary of your visits, and the ability to download your summaries to your computer or send the information securely to a physician. Remember that your healthcare information is confidential, so carefully consider who you will allow to register on the [facility] Patient Portal for access to your information. You can also access the [facility] Patient Portal on the [employer]. Simply click on Health Records under Health Data and then click on the [employer] logo. HOW TO SAFELY DISPOSE OF PRESCRIPTION MEDICATIONS Please use one of the following methods to safely dispose of your unused medications. 1.Use a drug disposal kit: the drug disposal pouch allows you to safely discard your old and unused drugs. Ask your nurse to give you one when you are discharged.2.Visit a local take-back location: Many local pharmacies and police departments have programs that collect old and unwanted prescription drugs. Call your local pharmacy or go to http://[employer] Books.Lifestyle Air/4E4Wo4b to find one close to you.3.Make use of household items: Use cat litter or old coffee grounds to dispose medications if other options are not available. Mix your drugs with these household products, seal them in an airtight container and throw it into the garbage. Call [facility]: [phone] to be sure your drugs can be disposed of in this way. Some medicines may require a different approach.4.Never flush your medications down the toilet. IF YOU HAVE BEEN PRESCRIBED AN OPIOIDS FOR PAIN If you have been prescribed an opioid (such as hydrocodone, oxycodone or morphine), it is critical to understand the possible side effects and risks of opioid pain medications. Even when taken as directed, opioids can have several side effects including: Tolerance, meaning you might need to take more of a medication for the same pain relief. Nausea, vomiting and/or constipation. Sleepiness, dizziness, dry mouth, confusion, depression or itching. Physical dependence, meaning you have withdrawal symptoms when a medication is stopped ? this can develop within a few days. KNOW YOUR RESPONSIBILITIES It is important to know exactly how much and how often to take the opioid pain medications you are prescribed. Never take opioids in higher amounts or more often than prescribed. Do not combine opioids with alcohol or other drugs that cause drowsiness, such as benzodiazepines, also known as benzos, including diazepam and alprazolam, muscle relaxants or sleep aids. Never sell or share prescription opioids. This is illegal. Store opioids in a secure place and out of reach of others (including children, family, friends and visitors). The last page(s) of this document has been signed and retained as a CHART COPY Signatures Patient Education Materials Ankle Sprain (Adult) Medication Leaflets My discharge plan and instructions have been reviewed and explained to me and I,DARA GARCIA understand my current condition and have read and understand these discharge instructions. I have received a written copy of the plan/instructions. If I have questions, I am aware that I should contact my doctor. Patient/Director Learning Signature: Date/Time: Relationship to Patient: ____ Witness Name/Signature: Date/Time: [facility] 04-20-2023 Note ORIGINAL EXAMINATION: 6 views of the right foot and ankle04/20/2023 2:22 pm COMPARISON: None HISTORY: ORDERING SYSTEM PROVIDED HISTORY: Reason for Exam: pain injury FINDINGS: There is no acute fracture or dislocation. There is no significant soft tissue swelling. There is no radiopaque foreign body. The articulations are intact. IMPRESSION: No acute fracture or dislocation. Interpreted by: Jeffery Walker DO Preliminary Report By: Jeffery Walker DO Electronically signed By Jeffery Walker DO Dictated Date: 04/20/2023 2:25:27 PM Prelim Date: 04/20/2023 2:29:22 PM Sign Date: 04/20/2023 2:29:22 PM Ordering Provider: [facility] 04-02-2023 Telephone encounter Note Patients insurance is requesting this to be sent in for 90 days instead of 30. Please advise. [facility] 04-02-2023 Miscellaneous Notes Patients insurance is requesting this to be sent in for 90 days instead of 30. Please advise. documented in this encounter [facility] 04-01-2023 Evaluation + Plan note Associated Problem(s): Autistic disorder Stable [facility] 04-01-2023 Evaluation + Plan note Associated Problem(s): Anxiety Stable, continue Zoloft 50 mg 1- 1/2 tablets daily [facility] 04-01-2023 Miscellaneous Notes Associated Problem(s): Autistic disorder Stable Associated Problem(s): Anxiety Stable, continue Zoloft 50 mg 1- 1/2 tablets daily Associated Problem(s): Attention deficit hyperactivity disorder (ADHD), combined type Stable, continue Focalin XR 15 mg daily and guanfacine 4 mg daily, she still has not scheduled with her psychiatrist. Associated Problem(s): Intrinsic atopic dermatitis Triamcinolone 0.5% cream apply twice daily for up to 2 weeks. Associated Problem(s): Type 2 diabetes mellitus without complication (CMS/HCC) (HCC) Uncontrolled, we will have her continue metformin at current dose and increase her glimepiride to 6 mg daily and check her blood sugar twice a day and drop off numbers in 2 weeks. Associated Problem(s): Obesity Discussed weight loss with diet and exercise, explained this would help her blood pressure or help her diabetes and her cholesterol. Associated Problem(s): Elevated BP without diagnosis of hypertension Blood pressure was initially elevated, recheck was improved but still diastolic was borderline high we will have her follow-up in 1 week for blood pressure check. documented in this encounter [facility] 04-01-2023 Evaluation + Plan note Associated Problem(s): Attention deficit hyperactivity disorder (ADHD), combined type Stable, continue Focalin XR 15 mg daily and guanfacine 4 mg daily, she still has not scheduled with her psychiatrist. [facility] 04-01-2023 Evaluation + Plan note Associated Problem(s): Intrinsic atopic dermatitis Triamcinolone 0.5% cream apply twice daily for up to 2 weeks. [facility] 04-01-2023 Evaluation + Plan note Associated Problem(s): Type 2 diabetes mellitus without complication (CMS/HCC) (HCC) Uncontrolled, we will have her continue metformin at current dose and increase her glimepiride to 6 mg daily and check her blood sugar twice a day and drop off numbers in 2 weeks. [facility] 04-01-2023 Evaluation + Plan note Associated Problem(s): Obesity Discussed weight loss with diet and exercise, explained this would help her blood pressure or help her diabetes and her cholesterol. [facility] 04-01-2023 Evaluation + Plan note Associated Problem(s): Elevated BP without diagnosis of hypertension Blood pressure was initially elevated, recheck was improved but still diastolic was borderline high we will have her follow-up in 1 week for blood pressure check. [facility] 04-01-2023 History of Present illness Narrative Patient verified by last name and date of . Images from the original note were not included. I 04/01/2023 Dara Garcia (: 2000) is a 22 y.o. female , Established patient, here for evaluation of the following chief complaint(s): Diabetes and Follow-up (3 month) ASSESSMENT/PLAN: 1. Type 2 diabetes mellitus without complication, without long-term current use of insulin ([facility] ([facility]) Assessment & Plan: Uncontrolled, we will have her continue metformin at current dose and increase her glimepiride to 6 mg daily and check her blood sugar twice a day and drop off numbers in 2 weeks. Orders: - Hemoglobin A1c - Basic metabolic panel 2. Attention deficit hyperactivity disorder (ADHD), combined type Assessment & Plan: Stable, continue Focalin XR 15 mg daily and guanfacine 4 mg daily, she still has not scheduled with her psychiatrist. 3. Autistic disorder Assessment & Plan: Stable 4. Elevated BP without diagnosis of hypertension Assessment & Plan: Blood pressure was initially elevated, recheck was improved but still diastolic was borderline high we will have her follow-up in 1 week for blood pressure check. 5. Class 2 severe obesity due to excess calories with serious comorbidity and body mass index (BMI) of 39.0 to 39.9 in adult ([facility]) Assessment & Plan: Discussed weight loss with diet and exercise, explained this would help her blood pressure or help her diabetes and her cholesterol. 6. Intrinsic atopic dermatitis Assessment & Plan: Triamcinolone 0.5% cream apply twice daily for up to 2 weeks. 7. Anxiety Assessment & Plan: Stable, continue Zoloft 50 mg 1- 1/2 tablets daily Follow up in about 3 months (around 07/02/2023). SUBJECTIVE/OBJECTIVE: DORCAS Bolanos comes in today for 3-month follow-up on her diabetes, she is also here for follow-up on her attention deficit disorder or autism and her blood pressure is again slightly elevated even though she has never actually been diagnosed with hypertension and her obesity. Her only complaint today is that her sugars have been elevated and she does bring in a list of blood sugars which are high and she has a rash on her right foot that she says is itchy and she been using antibiotic ointment on it. Review of Systems Constitutional: Negative for chills and fever. Respiratory: Negative for shortness of breath. Cardiovascular: Negative for chest pain and palpitations. Gastrointestinal: Negative for abdominal pain, blood in stool, constipation and diarrhea. Genitourinary: Negative for dyspareunia, dysuria, frequency, hematuria and urgency. Neurological: Negative for weakness and numbness. Psychiatric/Behavioral: Negative for dysphoric mood. The patient is not nervous/anxious. Vitals: 04/01/23 0710 04/01/23 0737 BP: (!) 130/100 (!) 130/92 Pulse: 95 82 SpO2: 98% 98% Weight: 259 lb 6.4 oz (118 kg) Height: 5' 8 (1.727 m) Physical Exam Vitals and nursing note reviewed. Constitutional: General: She is not in acute distress. Appearance: Normal appearance. She is obese. HENT: Head: Normocephalic. Right Ear: Tympanic membrane, ear canal and external ear normal. Left Ear: Tympanic membrane, ear canal and external ear normal. Mouth/Throat: Mouth: Mucous membranes are moist. Pharynx: Oropharynx is clear. Eyes: Extraocular Movements: Extraocular movements intact. Pupils: Pupils are equal, round, and reactive to light. Neck: Vascular: No carotid bruit. Cardiovascular: Rate and Rhythm: Normal rate and regular rhythm. Heart sounds: Normal heart sounds. No murmur heard. Pulmonary: Effort: Pulmonary effort is normal. Breath sounds: Normal breath sounds. Abdominal: General: Bowel sounds are normal. Palpations: Abdomen is soft. Tenderness: There is no abdominal tenderness. Musculoskeletal: General: Normal range of motion. Cervical back: Normal range of motion. Lymphadenopathy: Cervical: No cervical adenopathy. Skin: General: Skin is warm and dry. Comments: Dry scaly itchy patches on her right foot. Neurological: General: No focal deficit present. Mental Status: She is alert and oriented to person, place, and time. Psychiatric: Mood and Affect: Mood normal. An electronic signature was used to authenticate this note. Israel Raymundo MD 04/01/2023 7:52 AM documented in this encounter [facility] 03-31-2023 Telephone encounter Note Prescription Request: Last medication check: 01/08/23 Last physical exam: 03/13/23 Next scheduled appointment: 04/01/23 Last date of refill on this medication 11/03/22 30 days 3 refills [facility] 03-31-2023 Miscellaneous Notes Prescription Request: Last medication check: 01/08/23 Last physical exam: 03/13/23 Next scheduled appointment: 04/01/23 Last date of refill on this medication 11/03/22 30 days 3 refills documented in this encounter [facility] 01-02-2023 Note Not tolerating ear d rops. Start oral antibiotic. Reviewed and provided written patient education/instructions regarding diagnosis and management. Reviewed symptom management with non-pharmacological interventions and appropriate use of otc medications for relief of symptoms. Follow up for worsening or no improvement in symptoms. [facility] 12-29-2022 Telephone encounter Note Rx sent. Follow up as scheduled. [facility] 12-29-2022 Miscellaneous Notes Rx sent. Follow up as scheduled. Prescription Request: Last medication check: 10-27-22 Last physical exam: none Next scheduled appointment: 01-08-23 Last date of refill on this medication 10-20-22 documented in this encounter [facility] 12-29-2022 Telephone encounter Note Prescription Request: Last medication check: 10-27-22 Last physical exam: none Next scheduled appointment: 01-08-23 Last date of refill on this medication 10-20-22 [facility] 10-27-2022 Evaluation + Plan note Associated Problem(s): Type 2 diabetes mellitus without complication (CMS/HCC) (HCC) Uncontrolled, some improvement with increasing her metformin to 2000 mg daily, we will add glimepiride 2 mg daily have her check her blood sugar numbers twice a day and drop off numbers in 2 weeks when she comes in for a blood pressure check [facility] 10-27-2022 Miscellaneous Notes Associated Problem(s): Type 2 diabetes mellitus without complication (CMS/HCC) (HCC) Uncontrolled, some improvement with increasing her metformin to 2000 mg daily, we will add glimepiride 2 mg daily have her check her blood sugar numbers twice a day and drop off numbers in 2 weeks when she comes in for a blood pressure check Associated Problem(s): Elevated BP without diagnosis of hypertension Blood pressure was initially elevated, recheck was still high also her heart rate is elevated. She does say she has been under stress and had an argument with her this morning. We will recheck in 1 week may need to put her on a beta-clay to slow her heart rate along with controlling her blood pressure. documented in this encounter [facility] 10-27-2022 Miscellaneous Notes Associated Problem(s): Type 2 diabetes mellitus without complication (CMS/HCC) (HCC) Uncontrolled, some improvement with increasing her metformin to 2000 mg daily, we will add glimepiride 2 mg daily have her check her blood sugar numbers twice a day and drop off numbers in 2 weeks when she comes in for a blood pressure check Associated Problem(s): Elevated BP without diagnosis of hypertension Blood pressure was initially elevated, recheck was still high also her heart rate is elevated. She does say she has been under stress and had an argument with her this morning. We will recheck in 1 week may need to put her on a beta-clay to slow her heart rate along with controlling her blood pressure. Addended by: ISRAEL RAYMUNDO on: 11/03/2022 05:10 PM Modules accepted: Level of Service documented in this encounter [facility] 10-27-2022 Evaluation + Plan note Associated Problem(s): Elevated BP without diagnosis of hypertension Blood pressure was initially elevated, recheck was still high also her heart rate is elevated. She does say she has been under stress and had an argument with her this morning. We will recheck in 1 week may need to put her on a beta-clay to slow her heart rate along with controlling her blood pressure. [facility] 10-27-2022 History of Present illness Narrative Images from the original note were not included. 10/27/2022 Dara Garcia (: 2000) is a 22 y.o. female , Established patient, here for evaluation of the following chief complaint(s): Diabetes and Follow-up (1 week) ASSESSMENT/PLAN: 1. Type 2 diabetes mellitus without complication, without long-term current use of insulin ([facility] ([facility]) Assessment & Plan: Uncontrolled, some improvement with increasing her metformin to 2000 mg daily, we will add glimepiride 2 mg daily have her check her blood sugar numbers twice a day and drop off numbers in 2 weeks when she comes in for a blood pressure check Follow up in about 4 weeks (around 11/24/2022). SUBJECTIVE/OBJECTIVE: DORCAS Bolanos comes in today for follow-up on her diabetes she brings in blood sugar numbers which are still elevated most are in the upper 100s and in the 200s. She did increase her metformin to twice a day and she is trying to change her eating to where she is avoiding more carbs. Blood pressure is elevated today, will treat recheck that prior to discharge she says she has been really stressed she is not sleeping well she had an argument with her when he got home from work today. Review of Systems Constitutional: Negative for chills and fever. Respiratory: Negative for shortness of breath. Cardiovascular: Negative for chest pain and palpitations. Vitals: 10/27/22 0915 10/27/22 0937 BP: (!) 134/110 (!) 130/102 Pulse: (!) 123 (!) 130 SpO2: 97% 97% Weight: 251 lb 6.4 oz (114 kg) Height: 5' 8 (1.727 m) Physical Exam Vitals and nursing note reviewed. Constitutional: General: She is not in acute distress. Appearance: Normal appearance. HENT: Head: Normocephalic and atraumatic. Right Ear: Tympanic membrane, ear canal and external ear normal. Left Ear: Tympanic membrane, ear canal and external ear normal. Mouth/Throat: Mouth: Mucous membranes are moist. Pharynx: Oropharynx is clear. Eyes: Extraocular Movements: Extraocular movements intact. Pupils: Pupils are equal, round, and reactive to light. Cardiovascular: Rate and Rhythm: Normal rate and regular rhythm. Heart sounds: Normal heart sounds. No murmur heard. Pulmonary: Effort: Pulmonary effort is normal. Breath sounds: Normal breath sounds. Musculoskeletal: Cervical back: Neck supple. Lymphadenopathy: Cervical: No cervical adenopathy. Neurological: Mental Status: She is alert. An electronic signature was used to authenticate this note. Israel Raymundo MD 10/27/2022 10:02 AM documented in this encounter [facility] 10-27-2022 History of Present illness Narrative Images from the original note were not included. 10/27/2022 Dara Garcia (: 2000) is a 22 y.o. female , Established patient, here for evaluation of the following chief complaint(s): Diabetes and Follow-up (1 week) ASSESSMENT/PLAN: 1. Type 2 diabetes mellitus without complication, without long-term current use of insulin ([facility] ([facility]) Assessment & Plan: Uncontrolled, some improvement with increasing her metformin to 2000 mg daily, we will add glimepiride 2 mg daily have her check her blood sugar numbers twice a day and drop off numbers in 2 weeks when she comes in for a blood pressure check Follow up in about 4 weeks (around 11/24/2022). SUBJECTIVE/OBJECTIVE: DORCAS Bolanos comes in today for follow-up on her diabetes she brings in blood sugar numbers which are still elevated most are in the upper 100s and in the 200s. She did increase her metformin to twice a day and she is trying to change her eating to where she is avoiding more carbs. Blood pressure is elevated today, will treat recheck that prior to discharge she says she has been really stressed she is not sleeping well she had an argument with her when he got home from work today. Review of Systems Constitutional: Negative for chills and fever. Respiratory: Negative for shortness of breath. Cardiovascular: Negative for chest pain and palpitations. Vitals: 10/27/22 0915 10/27/22 0937 BP: (!) 134/110 (!) 130/102 Pulse: (!) 123 (!) 130 SpO2: 97% 97% Weight: 251 lb 6.4 oz (114 kg) Height: 5' 8 (1.727 m) Physical Exam Vitals and nursing note reviewed. Constitutional: General: She is not in acute distress. Appearance: Normal appearance. HENT: Head: Normocephalic and atraumatic. Right Ear: Tympanic membrane, ear canal and external ear normal. Left Ear: Tympanic membrane, ear canal and external ear normal. Mouth/Throat: Mouth: Mucous membranes are moist. Pharynx: Oropharynx is clear. Eyes: Extraocular Movements: Extraocular movements intact. Pupils: Pupils are equal, round, and reactive to light. Cardiovascular: Rate and Rhythm: Normal rate and regular rhythm. Heart sounds: Normal heart sounds. No murmur heard. Pulmonary: Effort: Pulmonary effort is normal. Breath sounds: Normal breath sounds. Musculoskeletal: Cervical back: Neck supple. Lymphadenopathy: Cervical: No cervical adenopathy. Neurological: Mental Status: She is alert. An electronic signature was used to authenticate this note. Israel Raymundo MD 10/27/2022 10:02 AM documented in this encounter [facility] 10-27-2022 Note Addended by: ISRAEL RAYMUNDO on: 11/03/2022 05:10 PM Modules accepted: Level of Service [facility] 08-26-2022 Note Rx sent, referral do ne I sent this 1 to the [facility] however the 1 from last May was to Dr. Barroso, it looks like it is still open if she would prefer to go there. [facility] 03-31-2022 Evaluation + Plan note Associated Problem(s): Type 2 diabetes mellitus without complication, without long-term current use of insulin (HCC) Chronic, Stable, continue meds, watch diet, increase activity as can tolerate. Monitor BS as instructed. Bring blood sugar log to next visit. Get A1C drawn today. [facility] 03-31-2022 Miscellaneous Notes Associated Problem(s): Type 2 diabetes mellitus without complication, without long-term current use of insulin (HCC) Chronic, Stable, continue meds, watch diet, increase activity as can tolerate. Monitor BS as instructed. Bring blood sugar log to next visit. Get A1C drawn today. Associated Problem(s): ADHD Chronic, stable, Continue current medications, Controlled Substance Agreement on file and [place] report checked today, given a 3 months supply, f/u here as scheduled. documented in this encounter [facility] 03-31-2022 Instructions Macarena Mina MD - 03/31/2022 9:46 AM EDT Problem List Items Addressed This Visit Endocrine Type 2 diabetes mellitus without complication, without long-term current use of insulin (HCC) - Primary Chronic, Stable, continue meds, watch diet, increase activity as can tolerate. Monitor BS as instructed. Bring blood sugar log to next visit. Get A1C drawn today. PCOS (polycystic ovarian syndrome) Relevant Medications norgestimate-ethinyl estradioL 0.25-35 mg-mcg per tablet Other ADHD Chronic, stable, Continue current medications, Controlled Substance Agreement on file and [place] report checked today, given a 3 months supply, f/u here as scheduled. Relevant Medications dexmethylphenidate (FOCALIN XR) 15 MG 24 hr capsule (Start on 06/09/2022) If any referrals were placed at the time of your visit please allow 2 weeks for processing. If you haven't heard from anyone within 2 weeks please contact my office so we can look into the status of your referral. If you were given any labs today please ensure they are completed according to the directions given. Once labs are completed please allow 1-2 weeks for us to receive the results, review them, and let you know what steps, if any, are needed next. If you haven't heard from us after that please call to inquire. If labs were ordered to be done PRIOR to your next visit we will discuss the results at the time of your office visit. If any procedures or imaging studies were ordered that must be prior authorized please give us 2 weeks to get them approved. Once approved someone should call you to schedule them or give you a date and time that they were scheduled for. If you haven't heard anything within 2 weeks of the office visit please call the office so we can look into their status. documented in this encounter [facility] 03-31-2022 Evaluation + Plan note Associated Problem(s): ADHD Chronic, stable, Continue current medications, Controlled Substance Agreement on file and [place] report checked today, given a 3 months supply, f/u here as scheduled. [facility] 03-31-2022 History of Present illness Narrative OFFICE VISIT PROGRESS NOTE HPI DM - Says taking meds, no complaints, tolerating well. No other issues or concerns. No labs, wait results to determine how she is doing. ADD - Says doing ok, taking as prescribed, no side effects, likes how she feels. Improves ADL's and QOL. The following portions of the patient's history were reviewed and updated as appropriate: allergies, current medications and problem list. The patient's surgical, family, and social history was reviewed and updated as appropriate. Review of Systems Review of Systems Constitutional: Negative for activity change and fatigue. Respiratory: Negative for chest tightness, shortness of breath and wheezing. Cardiovascular: Negative for chest pain and palpitations. Neurological: Negative for dizziness, weakness and numbness. Psychiatric/Behavioral: Negative for behavioral problems and dysphoric mood. The patient is not nervous/anxious. Vitals: 03/31/22 0941 BP: 130/70 BP Location: Right arm Patient Position: Sitting BP Cuff Size: X-large Adult Pulse: (!) 101 Temp: 97.9 F (36.6 C) TempSrc: Oral SpO2: 97% Weight: 108.1 kg (238 lb 6.4 oz) Height: 5' 8 Body mass index is 36.25 kg/m . Physical Exam Physical Exam Vitals and nursing note reviewed. Constitutional: Appearance: Normal appearance. She is well-developed. Cardiovascular: Rate and Rhythm: Normal rate and regular rhythm. Heart sounds: Normal heart sounds. Pulmonary: Effort: Pulmonary effort is normal. No respiratory distress. Breath sounds: Normal breath sounds. No wheezing. Skin: General: Skin is warm. Neurological: Mental Status: She is alert and oriented to person, place, and time. Psychiatric: Mood and Affect: Mood normal. Behavior: Behavior normal. OARRS/NARxCHECK Report Received and Assessed: 03/31/2022 Date controlled substance agreement signed: 12/25/2021 Date of last drug screen: 12/25/2021 Functional Assessment: No data found Assessment/Plan Problem List Items Addressed This Visit Endocrine Type 2 diabetes mellitus without complication, without long-term current use of insulin (HCC) - Primary Chronic, Stable, continue meds, watch diet, increase activity as can tolerate. Monitor BS as instructed. Bring blood sugar log to next visit. Get A1C drawn today. PCOS (polycystic ovarian syndrome) Relevant Medications norgestimate-ethinyl estradioL 0.25-35 mg-mcg per tablet Other ADHD Chronic, stable, Continue current medications, Controlled Substance Agreement on file and [place]AR[place] report checked today, given a 3 months supply, f/u here as scheduled. Relevant Medications dexmethylphenidate (FOCALIN XR) 15 MG 24 hr capsule (Start on 06/09/2022) Goals None If any referrals were placed at today's visit the patient was instructed to call the office if they havn't heard anything about the referral within 2 weeks of today's visit. For any new medications prescribed today, patient was educated about indications for the medication, how to take the medication and potential side effects of the medications. documented in this encounter [facility] 12-26-2021 Evaluation + Plan note Associated Problem(s): Autism Chronic, stable, continue meds, will monitor. [facility] 12-26-2021 Evaluation + Plan note Associated Problem(s): ADHD Chronic, stable, Continue current medications, Controlled Substance Agreement on file and OARRS report checked today, given a 3 months supply, f/u here as scheduled. UDS done today. [facility] 12-26-2021 Evaluation + Plan note Associated Problem(s): PCOS (polycystic ovarian syndrome) Chronic, stable, asymptomatic, may need to see OBGYN, will refer as necessary. [facility] 12-26-2021 Miscellaneous Notes Associated Problem(s): Autism Chronic, stable, continue meds, will monitor. Associated Problem(s): ADHD Chronic, stable, Continue current medications, Controlled Substance Agreement on file and OARRS report checked today, given a 3 months supply, f/u here as scheduled. UDS done today. Associated Problem(s): PCOS (polycystic ovarian syndrome) Chronic, stable, asymptomatic, may need to see OBGYN, will refer as necessary. Associated Problem(s): Type 2 diabetes mellitus without complication, without long-term current use of insulin (HCC) Chronic, unsure of type, will get labs, continue meds, further adjustments pending results. Will hold on seeing Endo at this time. Associated Problem(s): Obesity Discussed elevated Body Mass Index (BMI): Advised regular exercise. Discussed elevated Body Mass Index (BMI): Advised healthy and appropriate diet. Rationale: Overweight (Findings) BMI documented in this encounter [facility] 12-26-2021 Evaluation + Plan note Associated Problem(s): Type 2 diabetes mellitus without complication, without long-term current use of insulin (HCC) Chronic, unsure of type, will get labs, continue meds, further adjustments pending results. Will hold on seeing Endo at this time. [facility] 12-25-2021 Instructions Macarena Mina MD - 12/25/2021 9:13 AM EDT Problem List Items Addressed This Visit Endocrine Type 2 diabetes mellitus without complication, without long-term current use of insulin (HCC) Chronic, unsure of type, will get labs, continue meds, further adjustments pending results. Will hold on seeing Endo at this time. Relevant Medications metFORMIN (GLUCOPHAGE-XR) 500 MG 24 hr tablet Other Relevant Orders CBC and Differential Comprehensive Metabolic Panel Lipid Panel TSH with Reflex Free T4 Microalbumin/Creatinine Ratio, UR Random Hemoglobin A1c PCOS (polycystic ovarian syndrome) Chronic, stable, asymptomatic, may need to see OBGYN, will refer as necessary. Other ADHD Chronic, stable, Continue current medications, Controlled Substance Agreement on file and [place]ARRS report checked today, given a 3 months supply, f/u here as scheduled. UDS done today. Relevant Medications guanFACINE 4 mg Tb24 sertraline (ZOLOFT) 100 MG tablet risperiDONE (RISPERDAL) 1 MG tablet dexmethylphenidate (FOCALIN XR) 15 MG 24 hr capsule (Start on 02/23/2022) Autism - Primary Chronic, stable, continue meds, will monitor. Relevant Medications guanFACINE 4 mg Tb24 sertraline (ZOLOFT) 100 MG tablet risperiDONE (RISPERDAL) 1 MG tablet dexmethylphenidate (FOCALIN XR) 15 MG 24 hr capsule (Start on 02/23/2022) Obesity Discussed elevated Body Mass Index (BMI): Advised regular exercise. Discussed elevated Body Mass Index (BMI): Advised healthy and appropriate diet. Rationale: Overweight (Findings) BMI Other Visit Diagnoses Encounter for long-term (current) use of medications Encounter for therapeutic drug monitoring Anxiety Relevant Medications hydrOXYzine (ATARAX) 25 MG tablet sertraline (ZOLOFT) 100 MG tablet risperiDONE (RISPERDAL) 1 MG tablet If any referrals were placed at the time of your visit please allow 2 weeks for processing. If you haven't heard from anyone within 2 weeks please contact my office so we can look into the status of your referral. If you were given any labs today please ensure they are completed according to the directions given. Once labs are completed please allow 1-2 weeks for us to receive the results, review them, and let you know what steps, if any, are needed next. If you haven't heard from us after that please call to inquire. If labs were ordered to be done PRIOR to your next visit we will discuss the results at the time of your office visit. If any procedures or imaging studies were ordered that must be prior authorized please give us 2 weeks to get them approved. Once approved someone should call you to schedule them or give you a date and time that they were scheduled for. If you haven't heard anything within 2 weeks of the office visit please call the office so we can look into their status. documented in this encounter [facility] 12-25-2021 Evaluation + Plan note Associated Problem(s): Obesity Discussed elevated Body Mass Index (BMI): Advised regular exercise. Discussed elevated Body Mass Index (BMI): Advised healthy and appropriate diet. Rationale: Overweight (Findings) BMI [facility] 12-25-2021 History of Present illness Narrative OFFICE VISIT PROGRESS NOTE HPI Autism/ADD - Says was treated for depression in [place] due to issues around her having to move. Had a psychiatrist in [place] who was the one treating the most of her symptoms and other issues. Had a lot of family issues, moving, and lost their service dog. Taking Adderall for focus due to autism and ADD. Also had intermittent behavioral instability that would cause acute episodes that were treated best by the Risperdal. Also kumar a service dog due to her service dog passing away. Has bad impulse control for which needs the intuniv. She is getting April 11. Learning how to drive right now. DM - Says was diagnosed in 2012 an found to be diabetic. Wa told by Endo that she had a marker for DM and tested showed she diabetic. Ended up being hospitalized for what sounds like DKA. Say down 40 lbs recently. Not on insulin. Was on an omnipod in the past. Last A1C was 6.5. The following portions of the patient's history were reviewed and updated as appropriate: allergies, current medications and problem list. The patient's surgical, family, and social history was reviewed and updated as appropriate. Review of Systems Review of Systems Constitutional: Negative for activity change and fatigue. Respiratory: Negative for chest tightness, shortness of breath and wheezing. Cardiovascular: Negative for chest pain and palpitations. Neurological: Negative for dizziness, weakness and numbness. Psychiatric/Behavioral: Negative for behavioral problems and dysphoric mood. The patient is not nervous/anxious. Vitals: 12/25/21 0903 12/25/21 0905 BP: (!) 140/80 (!) 140/82 BP Location: Right arm Left arm Patient Position: Sitting Sitting BP Cuff Size: X-large Adult X-large Adult Pulse: (!) 120 Temp: 97.9 F (36.6 C) TempSrc: Oral SpO2: 99% Weight: 97.9 kg (215 lb 12.8 oz) Height: 5' 8 Body mass index is 32.81 kg/m . Physical Exam Physical Exam Vitals and nursing note reviewed. Constitutional: Appearance: She is well-developed. Cardiovascular: Rate and Rhythm: Normal rate and regular rhythm. Heart sounds: Normal heart sounds. Pulmonary: Effort: Pulmonary effort is normal. No respiratory distress. Breath sounds: Normal breath sounds. No wheezing. Skin: General: Skin is warm. Neurological: Mental Status: She is alert and oriented to person, place, and time. OARRS/NARxCHECK Report Received and Assessed: 12/25/2021 Date controlled substance agreement signed: 12/25/2021 Date of last drug screen: 12/25/2021 Functional Assessment: No data found Assessment/Plan Problem List Items Addressed This Visit Endocrine Type 2 diabetes mellitus without complication, without long-term current use of insulin (HCC) Chronic, unsure of type, will get labs, continue meds, further adjustments pending results. Will hold on seeing Endo at this time. Relevant Medications metFORMIN (GLUCOPHAGE-XR) 500 MG 24 hr tablet Other Relevant Orders CBC and Differential Comprehensive Metabolic Panel Lipid Panel TSH with Reflex Free T4 Microalbumin/Creatinine Ratio, UR Random Hemoglobin A1c PCOS (polycystic ovarian syndrome) Chronic, stable, asymptomatic, may need to see OBGYN, will refer as necessary. Other ADHD Chronic, stable, Continue current medications, Controlled Substance Agreement on file and OARRS report checked today, given a 3 months supply, f/u here as scheduled. UDS done today. Relevant Medications guanFACINE 4 mg Tb24 sertraline (ZOLOFT) 100 MG tablet risperiDONE (RISPERDAL) 1 MG tablet dexmethylphenidate (FOCALIN XR) 15 MG 24 hr capsule (Start on 02/23/2022) Autism - Primary Chronic, stable, continue meds, will monitor. Relevant Medications guanFACINE 4 mg Tb24 sertraline (ZOLOFT) 100 MG tablet risperiDONE (RISPERDAL) 1 MG tablet dexmethylphenidate (FOCALIN XR) 15 MG 24 hr capsule (Start on 02/23/2022) Obesity Discussed elevated Body Mass Index (BMI): Advised regular exercise. Discussed elevated Body Mass Index (BMI): Advised healthy and appropriate diet. Rationale: Overweight (Findings) BMI Other Visit Diagnoses Encounter for long-term (current) use of medications Encounter for therapeutic drug monitoring Anxiety Relevant Medications hydrOXYzine (ATARAX) 25 MG tablet sertraline (ZOLOFT) 100 MG tablet risperiDONE (RISPERDAL) 1 MG tablet Goals None If any referrals were placed at today's visit the patient was instructed to call the office if they havn't heard anything about the referral within 2 weeks of today's visit. For any new medications prescribed today, patient was educated about indications for the medication, how to take the medication and potential side effects of the medications. Depression Screening 12/25/2021 Little interest or pleasure in doing things 0 Feeling down, depressed, or hopeless 0 PHQ-2 Total Score 0 If you checked off any problems, how difficult have these problems made it for you to do your work, take care of things at home, or get along with other people? Not difficult at all Depression Screening 12/25/2021 Little interest or pleasure in doing things 0 Feeling down, depressed, or hopeless 0 PHQ-2 Total Score 0 If you checked off any problems, how difficult have these problems made it for you to do your work, take care of things at home, or get along with other people? Not difficult at all PHQ-9: 0 REBECA-7: [facility]: [place]: Colonoscopy: Mammo: PAP: COVID Vaccine: pt refused Flu Vaccine: documented in this encounter [facility] 07-24-2021 History of Present illness Narrative Occupational Therapy Occupational Therapy Dicer Operator Rehabilitation Daily Treatment Note Dara Feng 2000 [id number] 07/24/2021 12:09 PM Current Outpatient Medications Medication Sig Dispense Refill Dexmethylphenidate HCl ER 15 MG CP24 Take 1 tablet by mouth daily for 30 days. 30 capsule 0 metFORMIN (GLUCOPHAGE-XR) 500 MG extended release tablet TAKE 2 TABLETS BY MOUTH IN THE MORNING AND 1 TABLET IN THE EVENING 270 tablet 0 glimepiride (AMARYL) 2 MG tablet Take 1 tablet by mouth every morning 30 tablet 3 norgestimate-ethinyl estradiol (ESTARYLLA) 0.25-35 MG-MCG per tablet Take 1 tablet by mouth daily fluticasone (FLONASE) 50 MCG/ACT nasal spray SHAKE LIQUID AND USE 1 SPRAY IN EACH NOSTRIL DAILY 48 g 1 ACCU-CHEK SMARTVIEW strip USE TWICE DAILY NEEDED 150 strip 3 sertraline (ZOLOFT) 100 MG tablet TAKE 1 TABLET BY MOUTH DAILY guanFACINE HCl ER (INTUNIV) 4 MG TB24 Take 4 mg by mouth daily 30 tablet 2 risperiDONE (RISPERDAL) 1 MG tablet Take 1 mg by mouth daily hydrOXYzine (ATARAX) 25 MG tablet Take 1 tablet by mouth nightly 30 tablet 2 No current facility-administered medications for this encounter. Diagnosis: ASD/ADD Treatment diagnosis: [place]olia driver wheelchair Insurance/Certification Information: [facility] medicare Physician Information: Dr. Soriano Subjective: Pt reports she will be traveling this week through the new years so we will have a gap in practice. She anticipates practicing with her grandma and fiance during that time. Grandma reports her missing a stop light on one occasion and that it was precipitated by multiple personal stressors that may have impacted her attention span. Pt reports that she understands she will need to avoid driving on days when she isn't able to focus well. Objective Observations related to [place] Goals: 1. Pt will complete driving on primary and secondary roads with no intervention required for steering or braking. Drove without intervention on any roads with 35mph or below. She did not require cues for elmer positioning or turning this session. There was snowfall overnight and OT took her to a parking lot with some snow cover and introduced the difference in driving with snow vs. Without. She practiced steering to feel the lack of control and practiced braking hard in snow versus pumping brakes. She also had to contend with significant glare on roadways from snow and bright sun and adjusted well. 2. Pt will complete regular parking with no verbal cues or intervention required. Parked both directions without intervention or cues needed. 3. Pt will complete manueverability course/parallel parking with minimal verbal cues. Spent most of session on maneuverability and parallel parking. She required multiple practices with both directions on maneuverability but ultimately was successful in completing the course. Then completed parallel parking on road with vehicles in one larger spot and in one tighter spot. Some verbal cues provided with technique but was successful in completion of parking. 4. Pt will drive on the expressway with no intervention required for steering or braking. Pt requested not attempting today due to snow and in the increase anxiety about driving too fast today. 5. Pt will complete safe elmer changes with no verbal cues or intervention required. She completed multiple elmer changes with higher levels of traffic with good effort and success. 6. Pt will complete stop sign procedures and appropriate turn taking with no verbal cues or intervention required. Only cued once to take her turn at a [address] as she was taking too long to enter intersection. 7. Pt will complete unprotected left turns with oncoming traffic with no verbal cues or intervention required. No intervention required on multiple attempts. 8. Pt will demonstrate safe use of vehicle modifications. Specify equipment if applicable: NA Assessment: Overall showing improvement and was recipient of benefit of feeling what it is like to drive in snow in controlled environment. She demonstrated improvement with maneuverability and parallel parking. Her elmer changes did not require intervention nor did her unprotected left hand turns. She and her grandma continue to show her dedication by practicing inbetween sessions so I am confident that she won't have too much of a setback with the holiday break. She asked if she could drive to [place] at night and I confirmed that she could do so on familiar routes and that the glare recovery she demonstrated today from the sun was more difficult than what she will experience with night driving. I also appreciated her ability to recognize her limitations in wanting to avoid highways with her increased anxiety from the weather this date. Time In: 1000am Time Out: 1200pm Timed Code Treatment Minutes: 120 Total Treatment Minutes: 120 Billed Units: 120 CPT: 60352 OT Work Conditioning Units: ____8__ Treatment/Activity Tolerance: good Prognosis: good Patient Requires Follow-up: yes Plan: Continue per plan of care:____x Alter current plan: Discharge: Plan for Next Session: Highways, parallel parking/maneuverability ADRIANE Bolton/Jess, MHS, CDRS Certified Dicer Operator Director Of Counterintelligence 07/24/2021 12:21 PM documented in this encounter [employer] Phone: 07-03-2021 History of Present illness Narrative Occupational Therapy Occupational Therapy Dicer Operator Rehabilitation Daily Treatment Note Dara Feng 2000 [id number] 07/03/2021 8:04 AM Current Outpatient Medications Medication Sig Dispense Refill Dexmethylphenidate HCl ER 15 MG CP24 Take 1 tablet by mouth daily for 30 days. 30 capsule 0 metFORMIN (GLUCOPHAGE-XR) 500 MG extended release tablet TAKE 2 TABLETS BY MOUTH IN THE MORNING AND 1 TABLET IN THE EVENING 270 tablet 0 glimepiride (AMARYL) 2 MG tablet Take 1 tablet by mouth every morning 30 tablet 3 norgestimate-ethinyl estradiol (ESTARYLLA) 0.25-35 MG-MCG per tablet Take 1 tablet by mouth daily fluticasone (FLONASE) 50 MCG/ACT nasal spray SHAKE LIQUID AND USE 1 SPRAY IN EACH NOSTRIL DAILY 48 g 1 ACCU-CHEK SMARTVIEW strip USE TWICE DAILY NEEDED 150 strip 3 sertraline (ZOLOFT) 100 MG tablet TAKE 1 TABLET BY MOUTH DAILY guanFACINE HCl ER (INTUNIV) 4 MG TB24 Take 4 mg by mouth daily 30 tablet 2 risperiDONE (RISPERDAL) 1 MG tablet Take 1 mg by mouth daily hydrOXYzine (ATARAX) 25 MG tablet Take 1 tablet by mouth nightly 30 tablet 2 No current facility-administered medications for this encounter. Diagnosis: ASD/ADD Treatment diagnosis: Magnolia driver wheelchair Insurance/Certification Information: [facility] medicare Physician Information: Dr. Soriano Subjective: Pt and zachariah endorse practicing multiple times over the week including driving to and from [place] and on [place]. Zachariah feels she takes turns slightly too fast and after slowing down, loses momentum to regain speed to keep up with traffic flow. Objective Observations related to [employer] Goals: 1. Pt will complete driving on primary and secondary roads with no intervention required for steering or braking. Drove on 4 [place], high traffic roads with good effort, maintains good spacing between herself and the vehicles in front and does not get too stressed when other cars are tailgating her. Took her back on curvy roads to reinforce the slow speeds required and then increasing speed at the arc or apex of the turn to maintain traffic flow. Pt with multiple turns for practice and improved with elmer control on turns. 2. Pt will complete regular parking with no verbal cues or intervention required. Completed parking to left without cues but started a turn to the right too close to the spot and required cues to increase distance for adequate turns. 3. Pt will complete manueverability course/parallel parking with minimal verbal cues. Introduced parallel parking by parking on street with no vehicles present and then completing the reversing process behind one vehicle without another vehicle present. Pt demonstrated good problem solving for turning and good spatial awareness for lining car up to curb. Then introduced maneuverability but allowing her to witness someone practicing the course and then completing it to the right side only. She required step by step cues for first attempt but showed improvement on second attempt. 4. Pt will drive on the expressway with no intervention required for steering or braking. NT 5. Pt will complete safe elmer changes with no verbal cues or intervention required. Introduced blind spot recognition and low traffic elmer changes. She required step by step cues for first attempt but then was able to complete with cues only for when to initiate change. At the end of the session, she required cues when an unexpected elmer change was encountered with increased traffic. 6. Pt will complete stop sign procedures and appropriate turn taking with no verbal cues or intervention required. No intervention needed but does tend to delay at stop signs to decide if she has the right of way (she waited on one occasion for a driver wheelchair to turn at a four way intersection when we were turning right and not going to cross their path at all. 7. Pt will complete unprotected left turns with oncoming traffic with no verbal cues or intervention required. Completed multiple unprotected turns with increased caution but effective judging of gaps. 8. Pt will demonstrate safe use of vehicle modifications. Specify equipment if applicable: NA Assessment: She showed significant improvement again this session in part to her continued practice with family. Pt completed elmer changes, mild parallel parking and was introduced to maneuverability. No physical intervention was required but still needs occasional cues for speed control to maintain easy elmer positions and cues to maintain traffic flow. She was encouraged to continue practicing with her grandma including trialing with the maneuverability course to continue developing her problem solving and spatial awareness. Time In: 800am Time Out: 1000 Timed Code Treatment Minutes: 120 min Total Treatment Minutes: 120 Billed Units: CPT: 16000 OT Work Conditioning Units: Treatment/Activity Tolerance: good Prognosis: good Patient Requires Follow-up: yes Plan: Continue per plan of care:____x Alter current plan: Discharge: Plan for Next Session: Elmer changes with increased traffic, introduce low traffic highway, more parallel parking and maneuverability. Talita Johnson OTR/L, MHS, CDRS Certified Dicer Operator Director Of Counterintelligence 07/03/2021 11:52 AM documented in this encounter [employer] Phone: 06-26-2021 History of Present illness Narrative Occupational Therapy Occupational Therapy Dicer Operator Rehabilitation Daily Treatment Note Dara Feng 2000 [id number] 06/26/2021 12:25 PM Current Outpatient Medications Medication Sig Dispense Refill Dexmethylphenidate HCl ER 15 MG CP24 Take 1 tablet by mouth daily for 30 days. 30 capsule 0 metFORMIN (GLUCOPHAGE-XR) 500 MG extended release tablet TAKE 2 TABLETS BY MOUTH IN THE MORNING AND 1 TABLET IN THE EVENING 270 tablet 0 glimepiride (AMARYL) 2 MG tablet Take 1 tablet by mouth every morning 30 tablet 3 norgestimate-ethinyl estradiol (ESTARYLLA) 0.25-35 MG-MCG per tablet Take 1 tablet by mouth daily fluticasone (FLONASE) 50 MCG/ACT nasal spray SHAKE LIQUID AND USE 1 SPRAY IN EACH NOSTRIL DAILY 48 g 1 Qreativ StudioU-CHEK SMARTVIEW strip USE TWICE DAILY NEEDED 150 strip 3 sertraline (ZOLOFT) 100 MG tablet TAKE 1 TABLET BY MOUTH DAILY guanFACINE HCl ER (INTUNIV) 4 MG TB24 Take 4 mg by mouth daily 30 tablet 2 risperiDONE (RISPERDAL) 1 MG tablet Take 1 mg by mouth daily hydrOXYzine (ATARAX) 25 MG tablet Take 1 tablet by mouth nightly 30 tablet 2 No current facility-administered medications for this encounter. Diagnosis: ASD/ADD Treatment diagnosis: [place] driver wheelchair Insurance/Certification Information: [facility] medicare Physician Information: Dr. Soriano Subjective: Pt and grandmother report they have been practicing in the [facility] and in [facility]. Grandmother states she has been doing better with maintaining elmer position and pt reports she achieved 30 mph. Objective Observations related to [employer] Goals: 1. Pt will complete driving on primary and secondary roads with no intervention required for steering or braking. Began driving on [place], [address] no shoulder. She maintained good elmer positioning and was able to achieve close to 35 mph. She took the first turn too quickly but subsequent turns she slowed appropriately entering the curves and then accelerating appropriately at the apex. She maintained good speed limit in the school zones and handled traffic well. Progressed to higher speed, [place] roads with good control. Then entered [facility] with high traffic but maintaining one elmer on right side. She did well maintaining spacing between vehicles in front of her. She was able to drive back to the hospital which incorporated her drive from her [place] to her home. OT did not need to assist with braking or accelerating or steering, only cues and preparation for traffic patterns. 2. Pt will complete regular parking with no verbal cues or intervention required. Pt completed parking with verbal cues only. Good spatial awareness and outcomes 3. Pt will complete manueverability course/parallel parking with minimal verbal cues. NT 4. Pt will drive on the expressway with no intervention required for steering or braking. NT 5. Pt will complete safe elmer changes with no verbal cues or intervention required. NT 6. Pt will complete stop sign procedures and appropriate turn taking with no verbal cues or intervention required. Good, controlled stops. 7. Pt will complete unprotected left turns with oncoming traffic with no verbal cues or intervention required. Completed a couple turns without oncoming traffic. 8. Pt will demonstrate safe use of vehicle modifications. Specify equipment if applicable: NA Assessment: Significant progress made this date. She started [address] a warm up in the neighborhood and maintained good elmer positioning, good speed control and excellent confidence this date. Pt showing improvement in part to practicing with her grandma in between sessions. She did not require any physical intervention, only verbal cues. Recommend continuing practice with grandma on two [place] and driving to and from [place]. Time In: 1000a Time Out: 1145a Timed Code Treatment Minutes: 105 min Total Treatment Minutes: 105 min Billed Units: 7 CPT: 40708 OT Work Conditioning Units: __7____ Treatment/Activity Tolerance: good Prognosis: good Patient Requires Follow-up: yes Plan: Continue per plan of care:____x Alter current plan: Discharge: Plan for Next Session: Begin elmer changes, increased traffic, introduce light parallel parking. ADRIANE Bolton/L, MHS, CDRS Certified Dicer Operator Director Of Counterintelligence 06/26/2021 12:55 PM documented in this encounter [employer] Phone: 06-19-2021 History of Present illness Narrative Occupational Therapy Occupational Therapy Dicer Operator Rehabilitation Daily Treatment Note Dara Feng 2000 [id number] 06/19/2021 12:17 PM Current Outpatient Medications Medication Sig Dispense Refill Dexmethylphenidate HCl ER 15 MG CP24 Take 1 tablet by mouth daily for 30 days. 30 capsule 0 metFORMIN (GLUCOPHAGE-XR) 500 MG extended release tablet TAKE 2 TABLETS BY MOUTH IN THE MORNING AND 1 TABLET IN THE EVENING 270 tablet 0 glimepiride (AMARYL) 2 MG tablet Take 1 tablet by mouth every morning 30 tablet 3 norgestimate-ethinyl estradiol (ESTARYLLA) 0.25-35 MG-MCG per tablet Take 1 tablet by mouth daily fluticasone (FLONASE) 50 MCG/ACT nasal spray SHAKE LIQUID AND USE 1 SPRAY IN EACH NOSTRIL DAILY 48 g 1 ACCU-CHEK SMARTVIEW strip USE TWICE DAILY NEEDED 150 strip 3 sertraline (ZOLOFT) 100 MG tablet TAKE 1 TABLET BY MOUTH DAILY guanFACINE HCl ER (INTUNIV) 4 MG TB24 Take 4 mg by mouth daily 30 tablet 2 risperiDONE (RISPERDAL) 1 MG tablet Take 1 mg by mouth daily hydrOXYzine (ATARAX) 25 MG tablet Take 1 tablet by mouth nightly 30 tablet 2 No current facility-administered medications for this encounter. Diagnosis: ASD/ADD Treatment diagnosis: Magnolia driver wheelchair Insurance/Certification Information: [facility] medicare Physician Information: Dr. Soriano Subjective: Pt and grandiglesia present for session. Report they have driven in a neighborhood and zachariah thinks she hugs the right side a little when driving. Pt said she feels overwhelmed when other cars are present at a [address]. She did report feeling like her attention petered out after about 90 minutes of driving. Objective Observations related to Halfway Goals: 1. Pt will complete driving on primary and secondary roads with no intervention required for steering or braking. Drove in the [place] neighborhood with good effort. Speed stayed around 18-21 mph (speed limit 25) but able to maintain elmer positioning when instructed to line up her right leg with the center of the elmer. She made a lot of right and left hand turns onto adjacent streets with min cues for when to initiate turns. She did well scanning for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 Referred To Contact Authorized Occupational Therapy Diagnoses Attention-deficit hyperactivity disorder, unspecified type Procedures oT Grey Soriano, DO [address] [facility] [address] [place] [address] Senait Johnson OT Reason Comments Concern For COVID-19 dull headache, ney estion, bilateral ear pain x 2 days Specialty Diagnoses / Procedures Referred By Contac t Referred To Contact Occupational Therapy Diagnoses Attention-deficit hyperactivity disorder, unspecified type Procedures oT Grey Soriano, DO [address] [facility] [address] [place] [address] Senait Johnson OT Referral ID Status Reason Start Date Expiration Date V isits Requested Visits Authorized [id number] Authorized 03/14/2021 03/14/2022 30 30 Reason Comments Establish Care Reason Comments Follow-up Gap Closure (Health Maintenance) A1C Nev er doneFoot Exam Never doneUrine Microalbumin Never done Reason Comments Diabetes Follow-up 1 week Reason Comments Med Refill Reason Onset Date Comments Med Refill 03/31/2023 Reason Comments Diabetes Follow-up 3 month Reason Onset Date Comments Med Refill 04/02/2023 Reason Comments Follow-up Diabetic med check Reason Onset Date Comments Med Refill 08/12/2023 Care Teams (unrecognized sec tion and content) Mortgage Loan Originator Relationship Specialty Start Date End Date Grey Soriano DO [address] [facility] [address] [place] [address] PCP - General Family Medicine 12/21/18 Mortgage Loan Originator Relationship Specialty Start Date End Date Grey Soriano DO [address] [facility] [address] [place] [address] PCP - General Family Medicine 12/21/18 Mortgage Loan Originator Relationship Specialty Start Date End Date Grey Soriano, DO [address] [facility] [address] [place] [address] PCP - General Family Medicine 12/21/18 Mortgage Loan Originator Relationship Specialty Start Date End Date Macarena Mina MD [address] [place] [address] PCP - General Family Medicine 12/25/21 Mortgage Loan Originator Relationship Specialty Start Date End Date Macarena Mina MD [address] [place] [address] PCP - General Family Medicine 12/25/21 Mortgage Loan Originator Relationship Specialty Start Date End [place] [address] PCP - General 06/04/22 [place] [address] 06/04/22 Mortgage Loan Originator Relationship Specialty Start Date [place] [address] PCP - General 06/04/22 [place] [address] 06/04/22 Mortgage Loan Originator Relationship Specialty Start Date End Date [facility] [place] [address] PCP - General 06/04/22 Israel Raymundo MD [facility] [place] [address] 06/04/22 Mortgage Loan Originator Relationship Specialty Start Date End Date Israel Raymundo MD [address] [facility] [place] [address] PCP - General 06/04/22 Israel Raymundo MD [address] [facility] [place] [address] 06/04/22 Mortgage Loan Originator Relationship Specialty Start Date End Date Israel Raymundo MD [address] [place] [address] PCP - General 06/04/22 Israel Raymundo MD [address] [facility] [place] [address] 06/04/22 Mortgage Loan Originator Relationship Specialty Start Date End Date Israel Raymundo MD [address] [place] [address] PCP - General 06/04/22 Israel Raymundo MD [address] [facility] [place] [address] 06/04/22 Mortgage Loan Originator Relationship Specialty Start Date End Date Israel Raymundo MD [address] [place] [address] PCP - General 06/04/22 Israel Raymundo MD [address] [facility] [place] [address] 06/04/22 Mortgage Loan Originator Relationship Specialty Start Date End Date Israel Raymundo MD [address] [place] [address] [place] [address] PCP - General 06/04/22 Israel Raymundo MD [address] [place] [address] [place] [address] 06/04/22 Mortgage Loan Originator Relationship Specialty Start Date End Date Israel Raymundo MD [address] [place], [place] [address] [address] PCP - General 06/04/22 Israel Raymundo MD [address] [place], [place] [address] [address] 06/04/22 INFORMATION SOURCE (unrecogn ized section and content) DATE CREATED AUTHOR AUTHOR'S ORGANIZ ATION [facility] DATE CREATED AUTHOR AUTHOR'S ORGANIZ ATION 06/12/2022 [facility] DATE CREATED AUTHOR AUTHOR'S ORGANIZ ATION 07/29/2022 [facility] DATE CREATED AUTHOR AUTHOR'S ORGANIZ ATION 08/14/2023 [facility] FOR RECORDS PERTAINING TO PATIENTS WHO ARE OR HAVE BEEN ENROLLED IN A CHEMICAL DEPENDENCY/SUBSTANCEABUSE PROGRAM, SOME INFORMATION MAY BE OMITTED. This clinical summary was aggregated from multiple sources. Caution should be exercised in using it in the provision of clinical care. This summary normalizes information from multiple sources, and as a consequence, information in this document may materially change the coding, format and clinical context of patient data. In addition, data may be omitted in some cases. CLINICAL DECISIONS SHOULD BE BASED ON THE PRIMARY CLINICAL RECORDS. [facility] [employer] [facility]. provides no warranty or guarantee of the accuracy or completeness of information in this document.
== END | disposition home or self-care (01) ==
LOC: MTRAD 12:38
PROVIDERS: PCP Family Medicine; Referring Provider Physician Assistant Surgical; Visit Provider Physician Assistant Surgical
DX: S66.912A Strain of unspecified muscle, fascia and tendon at wrist and hand level, left hand, initial encounter (principal)
CPT/HCPCS: 73110